=== PATIENT | male | born 1960 | race Two or more races ===

== ENCOUNTER 2016-10-05 08:02 | Day surgery (SDC) | payer BC ==
[~2016-10-05] VITALS: Ht 165.1 cm; Wt 74.2 kg
[2016-10-05] MEDS ORDERED: LISINOPRIL (09:16)
[2016-10-05] MEDS ORDERED: LOVASTATIN (09:17)
[2016-10-05] MEDS ORDERED: METFORMIN (09:17)
[2016-10-05] MEDS ORDERED: ASPIRIN 81 (09:17)
[2016-10-05] MEDS ORDERED: GLIPIZIDE (09:17)
[2016-10-05 09:35] VITALS: Ht 165.1 cm; Wt 74.2 kg
[2016-10-05 09:59] VITALS: BP 129/82; PULSE 96; RESP 18
[2016-10-05 10:28] VITALS: BP 111/70; PULSE 88; RESP 13
[2016-10-05] MEDS ORDERED: FENTAnyl 50 MCG/ML VIAL ONE (10:32)
[2016-10-05] MEDS ORDERED: MIDAZOLAM 1 MG/ML 2 ML INJ ONE ×2 (10:32→10:33)
[2016-10-05 10:41] VITALS: BP 118/80; RESP 20
[2016-10-05 11:01] VITALS: BP 106/70; RESP 20
--- NOTE | 2016-10-05 13:38 | GILP ---
DATE OF PROCEDURE: NAME OF PROCEDURE: Colonoscopy. SURGEON: Amber Rios MD PREOPERATIVE DIAGNOSIS: Screening colonoscopy. POSTOPERATIVE DIAGNOSES 1. Colonoscopy all the way to the cecum. 2. Poor prep making the exam somewhat suboptimal. 3. Internal hemorrhoids. 4. No gross neoplasm was identified. INDICATION FOR THE PROCEDURE: Mr. Rajat Ferris is a 56-year-old male patient who was scheduled fo r screening colonoscopy. The procedure and possible complications are well explained to the patient. The patient understood and consented to the procedure. DESCRIPTION OF PROCEDURE: Under the influence of fentanyl and Versed, the colonoscope was carefully introduced in the rectum and under direct vision, it was advanced all the way to the cecum. FINDINGS: The patient had poor prep making the exam somewhat suboptimal. The patient was noted to have internal hemorrhoids. No gross neoplasm was identified. He tolerated the procedure very well and there was no complication from the procedure. At the end o f the procedure, he was awake with stable vital signs and he was discharged home to the care of his family. IMPRESSION: 1. Colonoscopy all the way to the cecum. 2. Poor prep making the exam somewhat suboptimal. 3. Internal hemorrhoids. 4. No colon neoplasm was identified. Dictated By: AMBER WASHINGTON/YUSEF Conf#: [id number] DID#: [id number]
== END 2016-10-05 13:00 | disposition home or self-care (01) ==
LOC: EDSEX 08:02 → GIL 08:02
PROVIDERS: ATTEND Internal Medicine Gastroenterology
DX: Z12.11 Encounter for screening for malignant neoplasm of colon (principal); K64.8 Other hemorrhoids; I10 Essential (primary) hypertension; E11.9 Type 2 diabetes mellitus without complications
CPT/HCPCS: 45378; J2250; J3010